=== PATIENT | female | born 1980 | race Caucasian/White ===

== ENCOUNTER 2018-10-26 09:43 | Outpatient (CLI) | payer OTHER, SELFPAY ==
[2018-10-26 10:04] LABS: HCT 38.8 % (36.0-46.0); HGB 12.9 g/dL (12.0-15.5); Mean Corp. HGB Concentration 33.2 g/dL (32.0-36.0); Mean Corpuscular Hemoglobin 29.7 pg (27.0-33.0); Mean Corpuscular Volume 89.2 fL (80-95); Mean Platelet Volume 9.9 fL (8.0-11.0); Platelet Count 192 x1000/uL (130-400); RBC 4.35 m/cumm (4.00-5.20); RBC Distribution Width 13.4 % (11.7-14.6); White Blood Cell Count 5.49 k/cumm (4.4-10.8)
[2018-10-26 11:40] LABS: TSH 1.48 uIU/mL (0.358-3.74)
== END 2018-10-26 10:03 ==
PROVIDERS: PCP Family Medicine; Visit Provider Obstetrics & Gynecology
DX: R53.83 Other fatigue (principal)
CPT/HCPCS: 36415; 85027; 84443

== ENCOUNTER 2018-10-27 01:29 | Outpatient (CLI) | payer OTHER, SELFPAY ==
--- NOTE | 2018-10-27 08:00 | DI.US_ITS ---
SYMPTOM/DIAGNOSIS: R/O GALLSTONES. ABD PAIN R10.9 ABDOMEN ULTRASOUND: Comparison is made with 26 Apr 2014. The liver is normal in size and echogenicity. No focal liver lesions or biliary dilatation is seen. The gallbladder has a normal appearance without evidence of stones or wall thickening. The kidneys, spleen and aorta are unremarkable. No right upper quadrant fluid is seen. IMPRESSION: Negative abdomen ultrasound.
[2018-10-29 10:54] LABS: Helicobacter pylori Ag, Feces Negative (NEGAT)
== END 2018-10-27 01:49 ==
PROVIDERS: PCP Family Medicine; Visit Provider Obstetrics & Gynecology
DX: R10.9 Unspecified abdominal pain (principal)
CPT/HCPCS: 87338; 76700

== ENCOUNTER 2019-08-10 18:50 | Outpatient (REF) | payer OTHER, SELFPAY ==
[2019-08-12 19:41] LABS: HSV 1 PCR, Varies Positive (Negative); HSV 2 PCR, Varies Negative (Negative)
== END 2019-08-10 19:10 ==
LOC: LBN 18:50
PROVIDERS: PCP Family Medicine; Visit Provider Nurse Practitioner
DX: B00.1 Herpesviral vesicular dermatitis (principal); R21 Rash and other nonspecific skin eruption
CPT/HCPCS: 87529

== ENCOUNTER 2020-06-08 01:28 | Outpatient (CLI) | payer OTHER, SELFPAY ==
[2020-06-08 13:24] LABS: TSH (W/Ref FT4) 1.69 uIU/mL (0.36-3.74)
== END 2020-06-08 01:48 ==
PROVIDERS: PCP Family Medicine; Visit Provider Family Medicine
DX: E03.9 Hypothyroidism, unspecified (principal)
CPT/HCPCS: 36415; 84443

== ENCOUNTER 2020-08-11 08:30 | Outpatient (CLI) | payer OTHER, SELFPAY ==
[2020-08-12 20:29] LABS: COVID-19 RT-PCR Result NEGATIVE (Negative)
== END 2020-08-11 08:50 ==
PROVIDERS: PCP Family Medicine; Visit Provider Nurse Practitioner Family
DX: Z11.59 Encounter for screening for other viral diseases (principal)
CPT/HCPCS: U0003

== ENCOUNTER 2020-09-22 20:08 | Emergency (ER) | payer OTHER, SELFPAY ==
[2020-09-22] VITALS (13 sets, daily range): BP systolic 100–138; BP diastolic 74–82; PULSE 77–108; RESP 14–30; TEMP 37; O2SAT 96–100
--- NOTE | 2020-09-22 20:00 | RT.EKG_ITS ---
APPROVED REPORT Exam: Resting ECG Patient Location: E HR:96 bpm ECG Measurements Heart Rate 96 AXIS NV 145 P 64 QRSd 99 QRS 56 QT 358 T 42 QTc 448 Conclusion Sinus rhythm, intervals normal, PVC noted, less than a millimeter of elevation in V1 and aVR, no evid ence of STEMI, no significant reciprocal elevations or depressions.
--- NOTE | 2020-09-22 20:10 | W.ED.GENAD ---
Discharge Plan Disposition Patient Disposition: HOME Condition: Good Discharge Details Clinical Impression: Heart palpitations, Frequent PVCs, Abdominal discomfort, Hair loss Primary Care Provider: Chichi Eduardo ED Provider: Azalea Waite Home Meds and New Rx's Prescriptions: Continued ferrous sulfate 324 MG tablet,delayed release (DR/EC) 324 mg PO BID RF: 0 Centrum Complete 1 EACH tablet 1 tab-cap PO DAILY RF: 0 valacyclovir 1 gram tablet 2,000 mg PO ONCE PRN (Reason: cold sores) Qty: 20 RF: 1 omeprazole 20 mg capsule,delayed release(DR/EC) 20 mg PO DAILY Qty: 30 RF: 2 Discharge Instructions Instructions: Heart Palpitations (ED) Additional Instructions: Your labs and imaging are reassuring here today. On the cardiac cath lab technologist, you did have frequent PVCs. I would like for you to have a cardiac cath lab technologist. Please recheck to respiratory therapy tomorrow to schedule this being applied. Please keep your upcoming appointment with REHABILITATION ASSISTANT and discuss potential hormonal changes that may be the driving source of these issues. Continue to encourage water intake. Try to cut back on caffeine. Your lead and tick/Lyme testing are pending. We will contact you with any positive results. If you develop chest pain, shortness of breath, fevers or other new/worsening symptoms please seek care urgently once again. Otherwise, please follow-up with your primary care in the next 1 to 2 weeks for reevaluation. Referrals: Chichi Eduardo MD [Primary Care Provider] - Gerda Sanchez NP [NURSE PRACTITIONER] - Discharge Data Discharge Date/Time-TO BE ENTERED AT DEPARTURE: 09/22/20 21:40 Medical Decision Making Patient is pleasant 40-year-old female significant past medical history, presenting today with chief complaint of palpitations. Is also endorsing hair warm skin, abdominal discomfort. No change in her weight. No change in appetite. She has had a large amount of stress this is now seems to be out of normal. Symptoms of aggressively worsening over the past year. No chest pain. No shortness of breath. No recent travel. Cough. No change in her skin. Patient does have dogs used to live in [facility] but no known Lyme history or erythema migrans. Patient also has change in her menses. Mother went through menopause at 43. On exam, patient is symptomatically. While on the monitor, she did have frequent PVCs sometimes in bigeminy. On EKG, only 1 PVC was noted. She was noted to have a biphasic P wave. No previous for comparison. Patient is in a normal sinus rhythm. Lungs are clear. Normal thyroid exam. She does have a irregular heart rhythm consistent with PVCs but no murmurs, rubs or gallops. She does have some discomfort with palpation of the left sided epigastric region. No CVA tenderness. Calves are soft nontender. Concern for multitude of issues. Primarily concern for metabolic versus hormonal source of her symptoms. Also considered infectious such as Lyme disease. She does not have a block consistent with Lyme carditis. She does have an upcoming appointment with REHABILITATION ASSISTANT on Friday at which time she could discuss potential hormonal changes being the source. However, with the frequent PVCs I do feel that more prompt evaluation today would be appropriate. As patient does have a left-sided upper abdominal pain that can radiate to the back I do feel that imaging would be appropriate particular as this is worsened over the past year. FINDINGS: Liver: No mass. Gallbladder and bile ducts: No calcified stones. No ductal dilation. Pancreas: No ductal dilation. No masses. Spleen: No splenomegaly or focal lesions. Adrenals: No mass. Kidneys and ureters: Nonobstructive subcentimeter left nephrolithiasis. No renal masses or hydronephrosis bilaterally. Stomach and bowel: No obstruction. No mucosal thickening. Appendix: No evidence of appendicitis. Intraperitoneal space: Trace fluid in the pelvic cul-de-sac appearing physiologic for the patient's age. Vasculature: No abdominal aortic aneurysm. Lymph nodes: No significantly enlarged lymph nodes. Urinary bladder: Unremarkable as visualized. Reproductive: Unremarkable as visualized. Bones/joints: No acute fracture. Soft tissues: No suspicious lesions. IMPRESSION: 1. No acute findings. 2. Nonobstructive subcentimeter left nephrolithiasis. FINDINGS: Lungs: No consolidation. Pleural space: No pleural effusion. No pneumothorax. Heart/Mediastinum: No cardiomegaly. Bones/joints: No acute fracture. IMPRESSION: No acute cardiopulmonary pathology. This is time to the patient. We did discuss the left nephrolithiasis. This is not seem to be consistent with her presentation today. Labs reviewed. CBC, CMP, lipase, TSH, troponin all without significant abnormality. Tick and Lyme as well as lead is pending. Heart rate has been downtrending with IV fluids. Continues to have PVCs and does endorse symptoms with this. Plan for cardiac monitoring. Given the time of day, unable to apply this tonight but of asked her to follow-up with respiratory therapy. Of also asked to follow-up with her primary care. She will keep her upcoming appoint with REHABILITATION ASSISTANT to discuss potential hormonal source of her symptoms. Return precautions were given. All of her questions and concerns were addressed and she is agreement this plan. HPI General Mode of arrival: ambulatory. Date/Time Provider Initiated Documentation: 09/22/20 20:10. Limitations to Documentation: no limitations. Information obtained by: patient and family (sister). HPI Narrative: Patient is a pleasant 40-year-old female presenting today with several vague complaints. Primary concern today is increased frequency of palpitations. She reports that typically her heart rate is in the 50s or 60s but she is been more tachycardic recently and has noted herself to have an irregular heart rate on radial palpation. Patient is a nurse. 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 She denies any shortness of breath. No fevers or chills. No known sick contacts. She also reports that associated with this is a burning over left upper abdomen. She reports that this can occasionally radiate to the back. She denies any chest pain. No alcohol use. This pain is not change with p.o. intake. No change in bowel or bladder habits. She does report that her menses has become more irregular over the past year. Also has been noting significant hair loss. No change in her weight. No change in appetite. She has discussed this with her primary care. Thyroid testing has been normal historically. She does report that she is also had intermittent swelling to the anterior aspect of her neck that was able to be visualized and confirmed with family members as well. This is not an issue currently. Mother went through menopause at 43. Related Data Home Medications Medication Instructions Recorded Confirmed Centrum Complete 1 tab-cap PO DAILY tab-cap 05/21/18 09/22/20 ferrous sulfate 324 mg PO BID 05/21/18 09/22/20 valacyclovir 1 gram tablet 2,000 mg PO ONCE PRN #20 tab 10/07/19 09/22/20 omeprazole 20 mg capsule,delayed 20 mg PO DAILY #30 cap 01/20/20 09/22/20 release Previous Rx's Medication Instructions Recorded valacyclovir 1 gram tablet 2,000 mg PO ONCE PRN #20 tab 10/07/19 omeprazole 20 mg capsule,delayed 20 mg PO DAILY #30 cap 01/20/20 release Allergies Allergy/AdvReac Type Severity Reaction Status Date / Time No Known Allergies Allergy Unverified 09/22/20 20:33 Review of Systems Constitutional Constitutional: Reports as per HPI, Denies chills, Reports fatigue, Denies fever(s), Denies headache(s), Denies lethargy and Denies poor appetite Eyes Eyes: Denies change in vision ENT Ears, Nose, Mouth, and Throat: Denies dizziness and Denies headache(s) Cardiovascular Cardiovascular: Reports as per HPI, Denies dyspnea and Denies dyspnea on exertion Respiratory Respiratory: Reports as per HPI, Denies chest congestion, Denies cough, Denies pain on inspiration, Denies pain with cough, Denies dyspnea, Denies dyspnea on exertion and Denies wheezing Gastrointestinal Gastrointestinal: Reports as per HPI, Reports abdominal pain, Denies diarrhea, Denies nausea and Denies vomiting Musculoskeletal Musculoskeletal: Reports as per HPI and Denies back pain Integumentary/Breasts Skin/Breast: Reports as per HPI and Denies rash Neurologic Neurologic: Reports as per HPI, Denies dizziness and Denies headache(s) Endocrine Endocrine: Reports fatigue Allergic/Immunologic Allergic/Immunologic: Denies wheezing [facility] Medical History Abnormal Pap smear of cervix prior to of first child. Surgical History section (03/17/13) LTCS 2 layer closure. IOL at 42w with Misoprostil arrest of dilation at 7cm for 3hrs. F. 9lbs 1oz. Family History Mother Essential hypertension Father Diabetes Essential hypertension Heart disease CHF (congestive heart failure) Sister No problems noted. Grandfather Personal history of malignant neoplasm LUNG Depression Grandfather Colon cancer Grandmother Diabetes Essential hypertension Heart disease Grandmother No problems noted. Maternal Aunt CHF (congestive heart failure) Breast cancer paternal aunt, maternal aunt Sister No problems noted. Son No problems noted. Son No problems noted. Daughter No problems noted. Social History Smoking/Tobacco Use Status: Former Tobacco Use Alcohol Intake: current Alcohol Intake frequency: holidays/special occasions only Substance use type: does not use Number of Children: 3 current occupation: RN Pets and animals: Yes Seatbelt use: always Do you feel safe at home: Yes Do you feel safe in your relationship?: Yes Exam Const General: cooperative, healthy appearing, comfortable, no acute distress and well developed Nutritional Appearance: average body habitus and well nourished Orientation: alert, awake and oriented x3 HENMT Head: normal to inspection Ears: hearing grossly normal bilaterally Mouth: moist mucous membranes Neck Neck: normal visual inspection, full ROM, no lymphadenopathy, no meningeal signs, trachea midline, no anterior neck swelling and no lymphadenopathy noted Thyroid: thyroid normal Chest Chest: normal inspection of the chest, normal palpation of entire chest wall and no crepitus Resp Effort & Inspection: normal respiratory effort, able to speak in complete sentences and no respiratory distress Auscultation: clear to auscultation bilaterally, no rales, no rhonchi and no wheezes Cardio Rate: regular rate Rhythm: abnormal rhythm irregularly irregular and with ectopic beats Heart Sounds: S1 normal and S2 normal GI Inspection: normal to inspection, no edema and non-distended Palpation: soft, no hepatosplenomegaly, not firm, no guarding, not rigid and tender (LUQ, close to epigastric region) Chew's sign negative and with no rebound tenderness Auscultation: normal bowel sounds Back/Spine/Pelvis Back: no CVA tenderness Thoracic/Lumbar Spine: thoracic and lumbar spine normal to inspection Skin General skin exam: no rashes or lesions noted Trauma: no lacerations or abrasions Neuro General: patient alert, patient awake and patient oriented x3 Cognition: normal cognition Speech: speech normal Gait: normal gait Extrem General: normal to inspection, capillary refill normal, no pedal edema, no calf tenderness and normal gait Psych Appearance: grossly normal and well kempt Mental Status: mental status grossly normal Speech and Movement: speech and movement normal
[2020-09-22 20:40] LABS: Abs Immature Grans 0.02 10^3/uL (0.0-0.06); Absolute Basophil Count 0.02 10^3/uL (0.0-0.2); Absolute Eosinophil Count 0.15 10^3/uL (0.0-0.7); Absolute Lymphocyte Count 2.36 10^3/uL (1.2-3.4); Absolute Monocyte Count 0.57 10^3/uL (0.1-0.8); Absolute Neutrophil Count 4.56 10^3/uL (1.2-6.7); Basophils % 0.3; HCT 40.4 % (36.0-46.0); HGB 13.2 g/dL (11.2-15.7); Immature Grans % 0.3; Lymphocytes % 30.7; MCH 29.3 pg (27.0-33.0); MCHC 32.7 % (32.0-36.0); MCV 89.8 fL (80-95); MPV 10.6 fL (8.0-11.0); Monocytes % 7.4; Neutrophils % 59.3; Nucleated RBC 0 %; Platelet Count 213 10^3/uL (130-400); RDW-SD 42.7 fL; WBC 7.68 10^3/uL (4.4-10.8)
[2020-09-22] MEDS: Normal Saline - Diluent 50 ML VIAL IV (20:43)
[2020-09-22] MEDS: Omnipaque 350 MG/ML 100 ML BTL IJ (20:43)
[2020-09-22] MEDS: Normal Saline Flush 10 ML SYR IVP (20:44)
--- NOTE | 2020-09-22 20:44 | DI.CT_ITS ---
EXAM: CT ABDOMEN PELVIS W INDICATION: central abdominal pain. COMPARISON: No exams were available for comparison TECHNIQUE: FINDINGS: CT examination of the abdomen and pelvis was performed with a bolus infusion of 100 cc of Omnipaque 3 50. Images obtained through the lung bases are unremarkable. The liver is unremarkable appearance. Gallbladder and bile ducts are CT normal. Pancreas appears normal. Spleen is unremarkable in appearance. Adrenals and kidneys are unremarkable except for a tiny nonobstructing left renal calculus. Urinary bladder unremarkable. Abdominal aorta is of normal diameter and no major vascular abnormality is seen. No abdominal wall hernia. No abdominal or pelvic adenopathy. BAG REPAIRER structures appear intact. Appendix is normal. No evidence of diverticulitis or bowel obstruction. IMPRESSION: Tiny nonobstructing left renal calculus. Examination is otherwise unremarkable. RADIATION DOSE DELIVERED: 928.27mGy.cm Total DLP 928.27mGy.cm Total DLP
--- NOTE | 2020-09-22 20:52 | DI.RAD_ITS ---
EXAM: XR CHEST 2V PA LATERAL CLINICAL HISTORY: palpitations TECHNIQUE: 2D digital imaging was performed. COMPARISON: CR CHEST 2 VIEWS PA,LAT from 01/25/2014 FINDINGS: The heart is not enlarged. The lungs are clear and well expanded. No pleural effusion seen. Mediastin al contours appear intact. IMPRESSION: Normal chest RADIATION DOSE DELIVERED: Total DLP Total DLP
[2020-09-22 20:58] LABS: Lipase 123 U/L (73-393)
--- NOTE | 2020-09-22 20:58 | DI.VRAD_ITS ---
PROCEDURE INFORMATION: Exam: CT Abdomen And Pelvis With Contrast Exam date and time: 09/22/2020 20:44 Age: 40 years old Clinical indication: Abdominal pain; Generalized TECHNIQUE: Imaging protocol: Computed tomography of the abdomen and pelvis with intravenous contrast. Radiation optimization: All CT scans at this facility use at least one of these dose optimization techniques: automated exposure control; mA and/or kV adjustment per patient size (includes targeted exams where dose is matched to clinical indication); or iterative reconstruction. Contrast material: [id number]; Contrast volume: 100 ml; Contrast route: INTRAVENOUS (IV); COMPARISON: US PELVIS TRANSVAG 04/13/2018 15:17 FINDINGS: Liver: No mass. Gallbladder and bile ducts: No calcified stones. No ductal dilation. Pancreas: No ductal dilation. No masses. Spleen: No splenomegaly or focal lesions. Adrenals: No mass. Kidneys and ureters: Nonobstructive subcentimeter left nephrolithiasis. No renal masses or hydronephrosis bilaterally. Stomach and bowel: No obstruction. No mucosal thickening. Appendix: No evidence of appendicitis. Intraperitoneal space: Trace fluid in the pelvic cul-de-sac appearing physiologic for the patient's age. Vasculature: No abdominal aortic aneurysm. Lymph nodes: No significantly enlarged lymph nodes. Urinary bladder: Unremarkable as visualized. Reproductive: Unremarkable as visualized. Bones/joints: No acute fracture. Soft tissues: No suspicious lesions. IMPRESSION: 1. No acute findings. 2. Nonobstructive subcentimeter left nephrolithiasis. Dictated and Authenticated by: Riya Mao MD. Ordering:ANA Tristan MD
[2020-09-22] MEDS: Lactated Ringers 1,000 ML 1000 ML IV (20:59)
--- NOTE | 2020-09-22 21:00 | DI.VRAD_ITS ---
PROCEDURE INFORMATION: Exam: XR Chest, 2 Views Exam date and time: 09/22/2020 20:53 Age: 40 years old Clinical indication: Other: Palpitations TECHNIQUE: Imaging protocol: XR of the chest Views: 2 views. COMPARISON: No relevant prior studies available. FINDINGS: Lungs: No consolidation. Pleural space: No pleural effusion. No pneumothorax. Heart/Mediastinum: No cardiomegaly. Bones/joints: No acute fracture. IMPRESSION: No acute cardiopulmonary pathology. Dictated and Authenticated by: Riya Mao MD. Ordering:ANA Tristan MD
[2020-09-22 21:13] LABS: ALT 24 U/L (14-59); AST 13 U/L (15-37); Albumin 4.2 g/dL (3.4-5.0); Alkaline Phosphatase 66 U/L (46-116); Anion Gap 8.2 mmol/L (3-11); BUN 14 mg/dL (7-18); Bilirubin, Total 0.5 mg/dL (0.2-1.0); CO2 26.8 mmol/L (21.0-32.0); CREATININE 0.95 mg/dL (0.55-1.02); Calcium 9.5 mg/dL (8.5-10.1); Chloride 106 mmol/L (98-107); Glucose 104 mg/dL (74-106); Magnesium 2.1 mg/dL (1.8-2.4); Potassium 3.5 mmol/L (3.5-5.1); Sodium 141 mmol/L (136-145); TSH (W/Ref FT4) 2.25 uIU/mL (0.36-3.74); Total Protein 7.5 g/dL (6.4-8.2); Troponin I < 0.05 ng/mL (<0.06)
[2020-09-25 11:02] LABS: Lyme Ab w Rflx to Lyme Confirm Negative (Negative)
[2020-09-27 18:57] LABS: Anaplasma phagocytophilum Negative (Negative); B. miyamotoi PCR Negative (Negative); Babesia divergens/MO-1 Negative (Negative); Babesia duncani Negative (Negative); Babesia microti Negative (Negative); Ehrlichia chaffeensis Negative (Negative); Ehrlichia ewingii/canis Negative (Negative); Ehrlichia muris eauclairensis Negative (Negative)
== END 2020-09-22 21:40 | disposition home or self-care (01) ==
PROVIDERS: Emergency Provider Physician Assistant; PCP Family Medicine
DX: I49.3 Ventricular premature depolarization (principal); R00.2 Palpitations; R10.13 Epigastric pain; L65.9 Nonscarring hair loss, unspecified
CPT/HCPCS: 36415; 80053; 81025; 83690; 87798; 93005; 96360; 99285; 71046; 74177; 83655; 83735; 84443; 84484; 85025; 86618; 93010; J3490

== ENCOUNTER 2020-09-25 10:22 | Outpatient (CLI) | payer OTHER, SELFPAY | END 2020-09-25 10:42 | PROVIDERS: PCP Family Medicine; Visit Provider Family Medicine | DX: R00.2 Palpitations (principal) | CPT/HCPCS: 93225 ==

== ENCOUNTER 2020-09-25 12:15 | Outpatient (REF) | payer OTHER, SELFPAY ==
--- NOTE | 2020-09-25 09:40 | PAPFT_PTH ---
PATIENT: Vidhya Gallegos LOC: [facility] U#:[id number] AGE/SX: 40/F ROOM: RE09/25/[address]: Gerda Sanchez NP : 1980 BED: DIS: 09/25/2020 SPEC #: [id number] RECD: 09/25/20 13:01 STATUS: DIANNE REJose #: [id number] JESSICA: 09/25/20 09:[address]: Gerda Sanchez NP DEPT: [facility] Cytology RECD BY: Tara Rod ENTERED: 09/25/20 13:02 SP TYPE: PAPFT OTHR DR: Chichi Eduardo MD Tissues: 1 - CX/ENDOCX FOR PAP SMEARS Procedures: PAP THIN PREP/[facility] Screening HPV DNA PROBE Comments: [id number] (CHLAMYDIA/GC)
[2020-09-26 15:01] LABS: Chlamydia Result Negative (Negative); GC Result Negative (Negative)
== END 2020-09-25 12:35 ==
LOC: LBN 12:15
PROVIDERS: PCP Family Medicine; Visit Provider Nurse Practitioner Women's Health
DX: Z11.3 Encounter for screening for infections with a predominantly sexual mode of transmission (principal); Z11.51 Encounter for screening for human papillomavirus (HPV); Z12.4 Encounter for screening for malignant neoplasm of cervix
CPT/HCPCS: 87491; 87591; 88142; 87624

== ENCOUNTER 2020-09-26 02:37 | Outpatient (CLI) | payer OTHER, SELFPAY ==
[2020-09-26 08:43] LABS: Hemoglobin A1C 5.2 % (<5.7)
[2020-09-26 18:03] LABS: Estradiol 79 pg/mL (See Note)
[2020-09-26 20:08] LABS: FSH 3.8 mIU/mL (See Note)
== END 2020-09-26 02:57 ==
PROVIDERS: PCP Family Medicine; Visit Provider Nurse Practitioner Women's Health
DX: L65.9 Nonscarring hair loss, unspecified (principal); N92.6 Irregular menstruation, unspecified; R63.1 Polydipsia
CPT/HCPCS: 36415; 82670; 83001; 83036

== ENCOUNTER 2020-09-27 12:51 | Outpatient (CLI) | payer OTHER, SELFPAY ==
--- NOTE | 2020-09-28 09:16 | W.HOLTRPT ---
Date of service: 09/28/20 Time of Service: 09:17 Holter Monitor Report Referring Provider:: jaimie shaw Indications:: palpitations Holter Monitor Note: This is a 48-hour Holter monitor reportedly ordered for symptoms of palpitations The rhythm throughout was sinus. Average heart rate was 73. Minimum heart rate was 50 and maximum 135 There were very rare atrial and ventricular ectopic beats There was no atrial fibrillation, no high-grade AV block, no pauses greater than 3 seconds patient symptoms correlated to sinus rhythm rate 97
== END 2020-09-27 13:11 ==
PROVIDERS: PCP Family Medicine; Visit Provider Family Medicine
DX: R00.2 Palpitations (principal); I49.1 Atrial premature depolarization; I49.3 Ventricular premature depolarization
CPT/HCPCS: 93226

== ENCOUNTER 2020-10-27 01:59 | Outpatient (CLI) | payer OTHER, SELFPAY ==
--- NOTE | 2020-10-27 13:00 | DI.MAMMO_ITS ---
EXAM: MAMMO SCREENING CLINICAL HISTORY: screening TECHNIQUE: Mammograms were interpreted according to the usual protocol including computer analysis w [employer] CAD system, tomosynthesis and C-view imaging. COMPARISON: FINDINGS: The breasts are of moderate density with fairly symmetrical distribution of fibroglandular tissue. N o dominant mass or clumped microcalcification is identified in either breast. Today's examination is a baseline examination. IMPRESSION: No specific evidence of malignancy at this time. Routine screening examinations are suggested at yea rly intervals in this age group according to the ACR guidelines. Category BI-RADS Cat 1 - Negative Breast Density - Category B - Scattered areas of fibroglandular density
== END 2020-10-27 02:19 ==
PROVIDERS: PCP Family Medicine; Visit Provider Nurse Practitioner Women's Health
DX: Z12.31 Encounter for screening mammogram for malignant neoplasm of breast (principal)
CPT/HCPCS: 77063; 77067

== ENCOUNTER 2021-10-18 09:12 | Outpatient (REF) | payer OTHER, SELFPAY ==
[2021-10-18 10:17] LABS: Source Nasal/Nares
[2021-10-18 20:05] LABS: COVID-19 PCR Negative (Negative)
== END 2021-10-18 09:13 | disposition home or self-care (01) ==
LOC: LBN 09:12
PROVIDERS: PCP Family Medicine; Visit Provider Obstetrics & Gynecology
DX: Z20.822 Contact with and (suspected) exposure to COVID-19 (principal)
CPT/HCPCS: 87635

== ENCOUNTER 2022-02-12 18:03 | Outpatient (REF) | payer OTHER, SELFPAY ==
[2022-02-12 20:59] LABS: COVID-19 RT-PCR UVMMC Result Negative (Negative)
== END 2022-02-12 18:04 | disposition home or self-care (01) ==
LOC: LBN 18:03
PROVIDERS: PCP Family Medicine; Visit Provider Obstetrics & Gynecology
DX: Z20.822 Contact with and (suspected) exposure to COVID-19 (principal)
CPT/HCPCS: U0003

== ENCOUNTER 2022-03-26 19:03 | Outpatient (REF) | payer OTHER, SELFPAY ==
[2022-03-28 11:44] LABS: COVID-19 RT-PCR UVMMC Result Negative (Negative)
== END 2022-03-26 19:04 | disposition home or self-care (01) ==
LOC: LBN 19:03
PROVIDERS: PCP Family Medicine; Visit Provider Obstetrics & Gynecology
DX: Z20.822 Contact with and (suspected) exposure to COVID-19 (principal)
CPT/HCPCS: U0003

== ENCOUNTER 2022-04-24 09:11 | Outpatient (CLI) | payer OTHER, SELFPAY | END 2022-04-24 09:12 | disposition home or self-care (01) | LOC: LBO 09:27 | PROVIDERS: Referring Provider Obstetrics & Gynecology; Visit Provider Obstetrics & Gynecology ==

== ENCOUNTER 2022-04-24 09:17 | Outpatient (REF) | payer OTHER, SELFPAY ==
[2022-04-25 02:01] LABS: COVID-19 RT-PCR UVMMC Result Negative (Negative)
== END 2022-04-24 09:18 | disposition home or self-care (01) ==
LOC: LBN 09:17
PROVIDERS: Visit Provider Obstetrics & Gynecology
DX: Z20.822 Contact with and (suspected) exposure to COVID-19 (principal)
CPT/HCPCS: U0003

== ENCOUNTER → 2022-07-08 02:37 | Outpatient (CLI) | payer OTHER, SELFPAY ==
--- NOTE | 2022-07-08 07:45 | DI.MAMMO_ITS ---
Exam(s) MAMMO SCREENING EXAM: MAMMO SCREENING CLINICAL HISTORY: screening,Z12.39. TECHNIQUE: Bilateral full field digital CC and MLO mammographic images were obtained with 3D tomosyn thesis and utilizing computer aided detection (CAD). COMPARISON: Prior mammograms were reviewed, the most recent being October 2020. FINDINGS: In the medial aspect of the right breast there is an asymmetric density measuring 3 x 3 cm located 7 cm in from the nipple, seen on the CC view. In the left breast on MLO 3D imaging there is a asymmetric density located 5 cm in from the nipple me asuring approximately 6 x 5 millimeters. No malignant-appearing microcalcification groups in either breast. There is no significant architectural distortion nor skin thickening-retraction. IMPRESSION: Bilateral asymmetric densities as described above. Spot compression views and bilateral breast ultra sound recommended BI-RADS Category 0 - Assessment Incomplete: Need additional imaging evaluation Breast Density - Category B - Scattered areas of fibroglandular density Breast density Category C or D implies that the patient has dense breast tissue. Dense breast tissue can make it harder to find cancer on a mammogram. Dense breast tissue is also associated with an incr eased risk of breast cancer. This information about the result of the mammogram report was provided to the patient to raise their awareness. Use this report when you speak with the patient about their risks for breast cancer, which includes their family history. At that time, you may recommend additional screening tests (Ultrasoun d or MRI) as these tests may add significant information. A negative radiographic report should not delay biopsy if a dominant or clinically suspicious mass is present. Up to ten percent of cancers are not identified on mammography. A negative report may reinforce clinical impression. Adenosis and dense breasts may obscure an underlying neoplasm. False positive reports average 6 to 10%. Patient will receive a letter notifying them of these results.
== END ==
PROVIDERS: Visit Provider Nurse Practitioner Women's Health
DX: Z12.31 Encounter for screening mammogram for malignant neoplasm of breast (principal); R92.8 Other abnormal and inconclusive findings on diagnostic imaging of breast
CPT/HCPCS: 77063; 77067

== ENCOUNTER 2022-07-09 16:29 | Outpatient (REF) | payer OTHER, SELFPAY ==
[2022-07-10 13:41] LABS: Chlamydia Result Negative (Negative); GC Result Negative (Negative)
== END 2022-07-09 16:30 | disposition home or self-care (01) ==
LOC: LBN 16:29
PROVIDERS: Visit Provider Nurse Practitioner Women's Health
DX: Z11.3 Encounter for screening for infections with a predominantly sexual mode of transmission (principal)
CPT/HCPCS: 87491; 87591

== ENCOUNTER → 2022-07-11 00:33 | Outpatient (CLI) | payer OTHER, SELFPAY ==
--- NOTE | 2022-07-11 | DI.US_ITS ---
Exam(s) US BREAST LT COMPLETE US BREAST RT COMPLETE MG MAMMO SCREEN CALL BACK BI EXAM: MG MAMMO SCREEN CALL BACK BI AND BILATERAL COMPLETE BREAST ULTRASOUND CLINICAL HISTORY: F/U MAMMO, BILAT ASYMMETRIC DENSITY, R92.8. TECHNIQUE: BILATERAL spot mammographic images obtained with 3D tomosynthesisand utilizing computer a ided detection (CAD). SPOT MLO VIEW WAS PERFORMED ON THE LEFT BREAST AND SPOT CC VIEW ON THE RIGHT BR EAST, BOTH PERFORMED WITH 3D SPOT TECHNIQUE.. Complete BILATERAL breast Ultrasound was also performed, including all 4 quadrants, the retroareolar region, and the ipsilateral axilla. COMPARISON: Prior mammograms were reviewed. This additional imaging was performed due to findings described on the recent screening mammogram of July 08, 2022. FINDINGS: DIAGNOSTIC BILATERAL MAMMOGRAM: Additional mammographic views performed todayrender the areas in both breasts less concerning. BILATERAL COMPLETE BREAST ULTRASOUND: Ultrasound performed today reveals no evidence of solid or significant cystic lesions in either breas t.. Retroareolar regions of both unremarkable. Scanning of the axillary regions is negative for vikram nopathy on both sides. IMPRESSION: No radiographic evidence of malignancy. Negative bilateral complete breast ultrasound Appropriate follow-up, as discussed by myself with the patient today, is repeat bilateral mammogram in 6 months. The patient was informed of these findings and recommendations prior to leaving the department today. BI-RADS Category 3 - 6 month - Probably Benign Finding: Recommend follow-up mammography in 6 months Breast Density - Category B - Scattered areas of fibroglandular density Breast density Category C or D implies that the patient has dense breast tissue. Dense breast tissue can make it harder to find cancer on a mammogram. Dense breast tissue is also associated with an incr eased risk of breast cancer. This information about the result of the mammogram report was provided to the patient to raise their awareness. Use this report when you speak with the patient about their risks for breast cancer, which includes their family history. At that time, you may recommend additional screening tests (Ultrasoun d or MRI) as these tests may add significant information. A negative radiographic report should not delay biopsy if a dominant or clinically suspicious mass is present. Up to ten percent of cancers are not identified on mammography. A negative report may reinforce clinical impression. Adenosis and dense breasts may obscure an underlying neoplasm. False positive reports average 6 to 10%. Patient will receive a letter notifying them of these results.
== END ==
PROVIDERS: Visit Provider Nurse Practitioner Women's Health
DX: R92.8 Other abnormal and inconclusive findings on diagnostic imaging of breast (principal)
CPT/HCPCS: 76642; 77063; 77067

== ENCOUNTER 2023-01-14 00:12 | Outpatient (CLI) | payer OTHER, SELFPAY ==
--- NOTE | 2023-01-14 07:45 | DI.MAMMO_ITS ---
Exam(s) MAMMO DIAGNOSTIC BI EXAM: MAMMO DIAGNOSTIC BI CLINICAL HISTORY: 6 month f/u,r92.8h/o asymmetric density. TECHNIQUE: Unilateral spot mammographic images were obtained with 3D tomosynthesis technique and uti lizing computer aided detection (CAD). COMPARISON: Prior mammograms were reviewed, the most recent being July 2022.. Ultrasound July 2022 was also reviewed (which was negative bilateral study). FINDINGS: There are no new masses nor malignant-appearing microcalcification groups in either breast. Previously described bilateral findings are actually less evident on the present study, further evide nce that they were benign. There is no new architectural distortion or skin thickening-traction IMPRESSION: No radiographic evidence of malignancy Appropriate follow-up is to keep this patient on her yearly mammogram schedule, this implying the [facility] t bilateral mammogram would be in 6 months, with earlier imaging if a self detected breast change is noted.. The patient was informed of the findings and follow-up recommendations prior to leaving the [facility] today. BI-RADS Category 2 - Benign Findings Breast Density - Category B - Scattered areas of fibroglandular density Breast density Category C or D implies that the patient has dense breast tissue. Dense breast tissue can make it harder to find cancer on a mammogram. Dense breast tissue is also associated with an incr eased risk of breast cancer. This information about the result of the mammogram report was provided to the patient to raise their awareness. Use this report when you speak with the patient about their risks for breast cancer, which includes their family history. At that time, you may recommend additional screening tests (Ultrasoun d or MRI) as these tests may add significant information. A negative radiographic report should not delay biopsy if a dominant or clinically suspicious mass is present. Up to ten percent of cancers are not identified on mammography. A negative report may reinforce clinical impression. Adenosis and dense breasts may obscure an underlying neoplasm. False positive reports average 6 to 10%. Patient will receive a letter notifying them of these results.
== END 2023-01-14 00:32 ==
LOC: DI 00:12
PROVIDERS: PCP Nurse Practitioner Family; Visit Provider Nurse Practitioner Women's Health
DX: R92.8 Other abnormal and inconclusive findings on diagnostic imaging of breast (principal)
CPT/HCPCS: 77062; 77066; G0279

== ENCOUNTER 2023-03-18 08:39 | Outpatient (REF) | payer OTHER, SELFPAY ==
[2023-03-18 09:35] LABS: COVID-19 PCR Negative (Negative); Influenza A PCR Negative (Negative); Influenza B PCR Negative (Negative); RSV PCR Negative (Negative)
[2023-03-18 09:38] LABS: Source Nasopharynx
== END 2023-03-18 08:40 | disposition home or self-care (01) ==
LOC: LBN 08:39
PROVIDERS: PCP Nurse Practitioner Family; Visit Provider Obstetrics & Gynecology
DX: Z20.822 Contact with and (suspected) exposure to COVID-19 (principal); J06.9 Acute upper respiratory infection, unspecified
CPT/HCPCS: 87637

== ENCOUNTER 2023-09-15 14:24 | Outpatient (REF) | payer OTHER, SELFPAY ==
[2023-09-15 15:24] LABS: COVID-19 PCR Negative (Negative); Influenza A PCR Negative (Negative); Influenza B PCR Negative (Negative); RSV PCR Negative (Negative)
[2023-09-15 15:25] LABS: Source Nasopharynx
== END 2023-09-15 14:25 | disposition home or self-care (01) ==
LOC: LBN 14:24
PROVIDERS: PCP Nurse Practitioner Family; Visit Provider Obstetrics & Gynecology
DX: Z11.59 Encounter for screening for other viral diseases (principal); Z20.822 Contact with and (suspected) exposure to COVID-19
CPT/HCPCS: 87637

== ENCOUNTER 2023-10-01 14:14 | Outpatient (REF) | payer OTHER, SELFPAY ==
--- NOTE | 2023-10-01 12:30 | PAPFT_PTH ---
PATIENT: Vidhya Gallegos LOC: [facility] U#:[id number] AGE/SX: 43/F ROOM: RE10/01/[address]: Neha Canales CNM : 1980 BED: DIS: 10/01/2023 SPEC #: [id number] RECD: 10/01/23 17:50 STATUS: DIANNE REQ #: [id number] JESSICA: 10/01/23 12:[address]: Neha Canales DEPT: [facility] Cytology RECD BY: Tara Rod ENTERED: 10/01/23 17:50 SP TYPE: PAPFT OTHR DR: Jon Peterson DNP Tissues: 1 - CX/ENDOCX FOR PAP SMEARS Procedures: PAP THIN PREP/UVM Screening Comments: [id number] (CHLAMYDIA/GC)
[2023-10-02 14:51] LABS: Chlamydia Result Negative (Negative); GC Result Negative (Negative)
== END 2023-10-01 14:15 | disposition home or self-care (01) ==
LOC: LBN 14:14
PROVIDERS: PCP Nurse Practitioner Family; Visit Provider Advanced Practice Midwife
DX: Z12.4 Encounter for screening for malignant neoplasm of cervix (principal); Z11.3 Encounter for screening for infections with a predominantly sexual mode of transmission
CPT/HCPCS: 87491; 87591; 88142

== ENCOUNTER → 2023-10-30 00:49 | Outpatient (CLI) | payer OTHER, SELFPAY ==
--- NOTE | 2023-10-30 13:12 | DI.MAMMO_ITS ---
Exam(s) MAMMO SCREENING EXAM: MAMMO SCREENING CLINICAL HISTORY: screening. TECHNIQUE: Bilateral full field digital CC and MLO mammographic images were obtained with 3D tomosyn thesis and utilizing computer aided detection (CAD). COMPARISON: Prior mammograms were reviewed. Prior ultrasound July 2022 also reviewed which was a negative bilateral study. FINDINGS: There are no new spiculated masses nor malignant-appearing microcalcification groups. Benign microcalcifications again noted in both breasts. There is no significant architectural distortion nor skin thickening-retraction. IMPRESSION: No radiographic evidence of malignancy. BI-RADS Category 1 - Negative Breast Density - Category B - Scattered areas of fibroglandular density Breast density Category C or D implies that the patient has dense breast tissue. Dense breast tissue can make it harder to find cancer on a mammogram. Dense breast tissue is also associated with an incr eased risk of breast cancer. This information about the result of the mammogram report was provided to the patient to raise their awareness. Use this report when you speak with the patient about their risks for breast cancer, which includes their family history. At that time, you may recommend additional screening tests (Ultrasoun d or MRI) as these tests may add significant information. A negative radiographic report should not delay biopsy if a dominant or clinically suspicious mass is present. Up to ten percent of cancers are not identified on mammography. A negative report may reinforce clinical impression. Adenosis and dense breasts may obscure an underlying neoplasm. False positive reports average 6 to 10%. Patient will receive a letter notifying them of these results.
== END ==
PROVIDERS: PCP Nurse Practitioner Family; Visit Provider Advanced Practice Midwife
DX: Z12.31 Encounter for screening mammogram for malignant neoplasm of breast (principal)
CPT/HCPCS: 77063; 77067

== ENCOUNTER 2023-12-11 03:32 | Outpatient (CLI) | payer OTHER, SELFPAY ==
[2023-12-11 11:27] LABS: Anion Gap 7.9 mmol/L (3-11); BUN 19 mg/dL (7-18); CO2 27.1 mmol/L (21.0-32.0); Calcium 9.5 mg/dL (8.5-10.1); Calculated LDL 170 mg/dL (<100); Chloride 103 mmol/L (98-107); Cholesterol 229 mg/dL (<200); Estimated GFR 71.69 (mL/min/1.73m2); Glucose 99 mg/dL (74-106); HDL Cholesterol 45 mg/dL (40-60); Potassium 3.9 mmol/L (3.5-5.1); Sodium 138 mmol/L (136-145); Triglyceride 71 mg/dL (<150)
[2023-12-11 20:08] LABS: Hepatitis B Surface Ag Negative (Negative)
[2023-12-11 20:40] LABS: Hepatitis C Ab w Rflx HCV PCR Negative (Negative)
[2023-12-11 20:44] LABS: HIV-1/2 Ag & Ab Screen Negative (Negative)
[2023-12-12 10:24] LABS: Syphilis Serology (RPR) Negative (Negative)
== END 2023-12-11 03:33 | disposition home or self-care (01) ==
LOC: LBO 03:33
PROVIDERS: Advanced Practice Midwife; PCP Nurse Practitioner Family; Visit Provider Nurse Practitioner Family
DX: Z13.220 Encounter for screening for lipoid disorders (principal); Z34.91 Encounter for supervision of normal pregnancy, unspecified, first trimester; Z72.51 High risk heterosexual behavior
CPT/HCPCS: 36415; 80048; 80061; 86803; 87340; 87389; 86592

== ENCOUNTER 2024-09-16 02:57 | Outpatient (CLI) | payer OTHER, SELFPAY ==
[2024-09-16 08:20] LABS: HCT 39.8 % (36.0-46.0); HGB 12.9 g/dL (11.2-15.7); MCH 28.6 pg (27.0-33.0); MCHC 32.4 % (32.0-36.0); MCV 88 fL (80-95); Platelet Count 216 10^3/uL (130-400); RBC 4.51 10^6/uL (3.93-5.22); RDW 13.7 % (11.7-14.6); RDW-SD 44.2 fL; WBC 5.34 10^3/uL (4.4-10.8)
[2024-09-16 09:05] LABS: ALT 23 U/L (14-59); AST 13 U/L (15-37); Albumin 3.9 g/dL (3.4-5.0); Alkaline Phosphatase 72 U/L (46-116); Anion Gap 7.7 mmol/L (3-11); BUN 11 mg/dL (7-18); Bilirubin, Total 0.78 mg/dL (0.2-1.0); CO2 28.3 mmol/L (21.0-32.0); Calcium 9.2 mg/dL (8.5-10.1); Chloride 107 mmol/L (98-107); Estimated GFR 71.24 (mL/min/1.73m2); Ferritin 28 ng/mL (8-252); Glucose 98 mg/dL (74-106); Sodium 143 mmol/L (136-145); TSH (W/Ref FT4) 2.85 uIU/mL (0.36-3.74); Total Protein 7.5 g/dL (6.4-8.2)
[2024-09-16 09:18] LABS: Iron 96 ug/dL (50-170); Total Iron Binding Capacity 389 ug/dL (250-450); Transferrin Sat 25 % (15-50)
== END 2024-09-16 02:58 | disposition home or self-care (01) ==
LOC: LBO 02:57
PROVIDERS: PCP Nurse Practitioner Family; Visit Provider Nurse Practitioner Women's Health
DX: R53.83 Other fatigue (principal)
CPT/HCPCS: 36415; 80053; 85027; 82728; 83540; 83550; 84443

== ENCOUNTER 2024-10-10 06:58 | Emergency (ER) | payer OTHER, SELFPAY ==
[2024-10-10 06:59] VITALS: BP 127/70; PULSE 99; RESP 17; TEMP 37.2; O2SAT 99
--- NOTE | 2024-10-10 07:00 | DI.RAD_ITS ---
Exam(s) XR CHEST 2V PA LATERAL EXAM: XR CHEST 2V PA LATERAL CLINICAL HISTORY: Cough TECHNIQUE: 2D digital imaging was performed of the chest. Two images were obtained. PA and lateral views were obtained. COMPARISON: CR,XR XR CHEST 2V PA LATERAL from 09/22/2020 FINDINGS: MEDIASTINUM: Normal. HEART: Normal. PULMONARY VASCULATURE: Normal. LUNGS: There is an infiltrate seen in the left lower lobe. The right lung is clear. PLEURAL SPACE: No pleural effusion or pneumothorax. BONE:Within normal limits for the patient's age. OTHER FINDINGS:Normal. IMPRESSION: Left lower lobe pneumonia. DATA REPOSITORY: RADIATION DOSE DELIVERED:
[2024-10-10 07:03] VITALS: BP 127/70; PULSE 99; RESP 17; TEMP 37.2; O2SAT 99
--- NOTE | 2024-10-10 07:07 | W.ED.GENAD ---
Discharge Plan Disposition Patient Disposition: Home Discharge Details Clinical Impression: Left lower lobe pneumonia Primary Care Provider: Jon Bateman ED Provider: Ephraim Chilel Home Meds and New Rx's Prescriptions: New promethazine-DM 6.25-15 mg/5 mL syrup 5 ml PO Q6H PRNQty: 118 0RF amoxicillin 500 mg capsule 1,000 mg PO TID 7 Days Qty: 42 0RF Continued ondansetron 4 mg tablet,disintegrating 4 mg PO Q6H Qty: 30 0RF Centrum Complete 1 EACH tablet 1 tab-cap PO DAILY valacyclovir 500 mg tablet 2,000 mg PO ONCE PRN (Reason: cold sores) Qty: 60 1RF Rx Instructions: 4 tabs 2 times daily x 1 day for cold sores omeprazole 20 mg capsule,delayed release(DR/EC) 20 mg PO .qd prn Qty: 30 2RF Discharge Instructions Instructions: Community-Acquired Pneumonia, Adult (DC) Additional Instructions: You are seen in the emergency department for your cough. As we discussed you will receive a call back if your viral swab returns positive. You have a left lower lobe pneumonia on your chest x-ray for which you are receiving antibiotics which you should take as directed. You are receiving a note from work which you should use as needed for rest. As we discussed please return if you develop worsening shortness of breath fevers cannot eat or drink or have any other concerns. Please follow-up with your primary care provider next week as needed. For your pain please take medications as follows: 1. Take acetaminophen (Tylenol), 1,000 mg (two 500 mg tabs) every 6 hours [2. Take ibuprofen (Advil), 400 mg every 6 hours.] Stand Alone Forms: Work Release HPI General Date/Time Provider Initiated Documentation: 10/10/24 07:06. HPI Narrative: MDM This is an overall very well-appearing normothermic and not tachycardic 44-year-old female with history and physical most consistent with bronchitis. Given diagnosis of pneumonia and her son and subjective fevers last week we will obtain a chest x-ray to assess for pneumonia though the patient has no abnormal lung sounds. No history of reactive airway disease nor tobacco use nor wheezes so my suspicion is low for reactive airway disease. No pain out of proportion to suggest necrotizing soft tissue infection. Good range of motion in neck so I am not suspicious for retropharyngeal abscess. No nuchal rigidity to suggest meningitis. 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 Patient is nontoxic-appearing so doubt bacterial tracheitis. Handling secretions so doubt epiglottitis. No significant chest pain to suggest ACS so I did not obtain an x-ray. Will swab for influenza RSV and COVID and reassess following chest x-ray and treatment with Tessalon Perles as patient has taken acetaminophen and ibuprofen earlier this morning. 9:32 AM Chest x-ray showing left lower lobe infiltrate. Patient not hypoxic on room air appropriate for empiric trial of discharge with expectant outpatient management. First dose of amoxicillin given in the emergency department along with antitussive prescription. Patient I discussed return indications including worsening shortness of breath inability to tolerate p.o. I provided her with a work note. Advised PCP follow-up as needed next week. Her influenza, COVID, and RSV swabs were all negative. HPI This is a previously healthy 44-year-old female arrived emergency department via private vehicle in the setting of cough. Patient reports that last week she was traveling to [place]. She said that her son had been sick with walking pneumonia. She said that 4 days ago she felt decreased energy and had some nausea. She was generally fatigued for several days. She had worsening cough. She was initially nauseous but that has improved. She says that she has some discomfort in her throat secondary to coughing. She denies history of diabetes recurrent nausea vomiting difficulty breathing history of tobacco use alcohol use and history of reactive airway disease. No recent falls. Exam General: Well-appearing in no acute distress speaking in complete sentences. Head: Normocephalic, atraumatic. Eye: Extraocular eye movements intact. No conjunctival injection. No scleral icterus. Ear, nose, mouth, throat: Grossly normal inspection. Normal voice, handling secretions normally. Uvula midline. No significant posterior oropharynx erythema. Neck: Trachea midline. Good range of motion in neck Cardiovascular: Well-perfused distal extremities. Regular rate and rhythm. Respiratory: Nonlabored respiration. Clear lungs bilaterally Gastrointestinal: Nondistended abdomen. Musculoskeletal: No edema. Moving all 4 extremities spontaneously. Skin: Normal for age and race, grossly normal temperature and turgor. No acute rash. Neurologic: Alert and appropriate, no apparent acute deficits. Psychiatric: Mood and manner are appropriate. Grooming and personal hygiene are appropriate. Related Data Home Medications ?Medication ?Instructions ?Recorded ?Confirmed multivitamin-ferrous 1 tab-cap PO DAILY 05/21/18 10/10/24 fumarate-folic acid 18 mg-400 mcg tablet (Centrum Complete) ondansetron 4 mg disintegrating 4 mg PO Q6H #30 tabs 12/16/22 10/10/24 tablet valacyclovir 500 mg tablet 2,000 mg (4 x 500 mg) PO ONCE PRN 11/27/23 10/10/24 cold sores #60 tabs omeprazole 20 mg capsule,delayed 20 mg PO .qd prn #30 caps 08/25/24 10/10/24 release amoxicillin 500 mg capsule 1,000 mg (2 x 500 mg) PO TID 7 10/10/24 days #42 caps promethazine-DM 6.25 mg-15 mg/5 mL 5 ml PO Q6H PRN #118 mL 10/10/24 oral syrup Previous Rx's ?Medication ?Instructions ?Recorded ondansetron 4 mg disintegrating 4 mg PO Q6H #30 tabs 12/16/22 tablet valacyclovir 500 mg tablet 2,000 mg (4 x 500 mg) PO ONCE PRN 11/27/23 cold sores #60 tabs omeprazole 20 mg capsule,delayed 20 mg PO .qd prn #30 caps 08/25/24 release amoxicillin 500 mg capsule 1,000 mg (2 x 500 mg) PO TID 7 10/10/24 days #42 caps promethazine-DM 6.25 mg-15 mg/5 mL 5 ml PO Q6H PRN #118 mL 10/10/24 oral syrup Allergies Allergy/AdvReac Type Severity Reaction Status Date / Time No Known Allergies Allergy Verified 10/10/24 07:04 General Stated Complaint: RespSymp NASIM: 4 Course Vital Signs Vital signs: Vital Signs Temperature 37.2 C 10/10/24 06:59 Pulse 99 H 10/10/24 06:59 Respiratory Rate 17 10/10/24 06:59 Blood Pressure 127/70 10/10/24 06:59 Pulse Oximetry 99 10/10/24 06:59 Temperature 37.2 C 10/10/24 07:03 Temperature Source Temporal Artery Scan 10/10/24 07:03 Pulse 99 H 10/10/24 07:03 Respiratory Rate 17 10/10/24 07:03 Respiratory Effort Normal 10/10/24 07:03 Blood Pressure 127/70 10/10/24 07:03 Blood Pressure Position Sitting 10/10/24 07:03 Pulse Oximetry 99 10/10/24 07:03 Oxygen Delivery Method Room Air 10/10/24 07:03 Oxygen Flow Rate 0 10/10/24 07:03 Pain Level 0 10/10/24 07:03 Medical Decision Making Quality:SDOH Health Related Social Needs: No Data to Display PFSH All Active Problems (Updated 10/10/24 @ 08:08 by Ephraim Chilel MD) Left lower lobe pneumonia (Acute) Neck discomfort (Acute) Right shoulder injury (Acute) Medical History Encounter for screening laboratory testing for COVID-19 virus Encounter for screening for other viral diseases Abnormal Pap smear of cervix prior to of first child. Surgical History section (03/17/13) LTCS 2 layer closure. IOL at 42w with Misoprostil arrest of dilation at 7cm for 3hrs. F. 9lbs 1oz. Family History Mother Essential hypertension Asthma Father , 83 Diabetes Essential hypertension Heart disease CHF (congestive heart failure) Depression Hypertension Dementia Grandfather Personal history of malignant neoplasm LUNG Depression Grandfather Colon cancer Grandmother Diabetes Essential hypertension Heart disease Maternal Aunt CHF (congestive heart failure) Breast cancer paternal aunt, maternal aunt Social History Smoking/Tobacco Use Status: Former Tobacco Use Tobacco: How many years used: 1 Second Hand Exposure: No Smoking risk assessment performed?: Yes Alcohol Intake: current Alcohol Intake frequency: holidays/special occasions only Alcohol type: wine Drug use: Never Substance use type: does not use Caregiver/Support person: No Household members: family Housing: house Number of Children: 3 Communication Needs: None Do you need help understanding health information?: Rarely current occupation: RN Pets and animals: Yes Pets and animals: dog(s) Sexually active: Yes Do you think of yourself as: straight/heterosexual Current gender identity: female What is your relationship status?: How often do you talk on the phone with friends or family?: three or more times per week How often do you get together with friends or relatives?: three or more times per week How often do you attend nondenominational or anabaptism services?: decline to answer Do you belong to any clubs or organized social groups?: decline to answer Panel score (0-1 are the most socially isolated patients): 2 What type of physical activity do you participate in: walking Duration: 30-45 minutes/day Frequency: 3-4 times per week Mandi/Shinto: No preference Special mandi needs: No Seatbelt use: always Helmet use: Yes Helmet use: always Drive 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 Do you feel safe at home: Yes Do you feel safe in your relationship?: Yes Victim of physical abuse: No Victim of emotional abuse: No Victim of sexual abuse: No Would you like helpful sources: No Female Reproductive History Menstrual control method: condoms History History 3 Para 3 Hx # Term Pregnancies Multiple births Hx # Pregnancies Ectopic pregnancies AB induced Hx Number of Living Children AB spontaneous PAWSS Have you Been Recently Intoxicated or Drunk Within the Last 30 days?: No Have you Ever Experienced Previous Episodes of Alcohol Withdrawal?: No Have you ever Experienced Withdrawal Seizures?: No Have you ever Experienced Delirium Tremens(DT)s?: No Have you ever undergone Alcohol Rehabilitation Treatment (i.e, inpt ot outpatient treatment programs)?: No Have you ever Experienced Blackouts?: No Have you ever Combined Alcohol with other Downers within the last 90 days?: No Have you ever Combined Alcohol with any other Substance of Abuse during the last 90 days?: No Result: 0
[2024-10-10] MEDS: Benzonatate 100 MG CAP PO (07:38)
--- NOTE | 2024-10-10 08:05 | DI.VRAD_ITS ---
Addendum created by Bridgette Fournier MD on 10/10/2024 8:31:28 AM EST: ADDENDUM: THIS REPORT CONTAINS FINDINGS THAT MAY BE CRITICAL TO PATIENT CARE. The findings were verbally communicated via telephone conference at 8:31 AM EST on 10/10/2024 with TOM Cano, as the ordering physician was unavailable for immediate conference. The findings were acknowledged and understood. Initial report created on 10/10/2024 8:05:17 AM EST: PROCEDURE INFORMATION: Exam: XR Chest Exam date and time: 10/10/2024 7:34 AM Age: 44 years old Clinical indication: Cough and other: Cough TECHNIQUE: Imaging protocol: Radiologic exam of the chest. Views: 2 views. COMPARISON: CR XR CHEST 2V PA LATERAL 09/22/2020 8:51 PM FINDINGS: Lungs: Interval development of focal airspace consolidation in the lateral aspect of the left lower lobe, which partially obscures the left hemidiaphragm. Lungs otherwise clear. Pleural spaces: Unremarkable. No pleural effusion. No pneumothorax. Heart/Mediastinum: Unremarkable. No cardiomegaly. Bones/joints: Unremarkable. IMPRESSION: Left lower lobe pneumonia. Dictated and Authenticated by: Bridgette Fournier MD. Ordering:DANUTA Ye MD
[2024-10-10] MEDS: Amoxicillin 500 MG CAP 1000 MG PO (08:14)
[2024-10-10 08:15] VITALS: BP 109/73; PULSE 83; RESP 18; TEMP 37.2; O2SAT 98
[2024-10-10 08:19] LABS: COVID-19 PCR Negative (Negative); Influenza A PCR Negative (Negative); Influenza B PCR Negative (Negative); RSV PCR Negative (Negative)
[2024-10-10 08:20] LABS: Source Nasopharynx
== END 2024-10-10 08:14 | disposition home or self-care (01) ==
PROVIDERS: Emergency Provider Emergency Medicine; PCP Nurse Practitioner Family
DX: R50.9 Fever, unspecified; J18.9 Pneumonia, unspecified organism; R05.1 Acute cough
CPT/HCPCS: 81025; 87637; 99283; 71046; 99284

== ENCOUNTER 2024-10-12 16:40 | Outpatient (REF) | payer OTHER, SELFPAY ==
[2024-10-12 21:16] LABS: Bilirubin Negative (Negative); Blood Trace-lysed (Negative); Clarity Clear (Clear); Glucose Negative (Negative); Ketones Negative (Negative); Leukocyte Esterase Negative (Negative); Nitrite Negative (Negative); Specific Gravity 1.015 (1.005-1.025)
[2024-10-12 21:24] LABS: Bacteria Rare HPF (Negative); Epithelial Cells Negative HPF (Negative); RBC 0-2 HPF (0-2); WBC Negative HPF (0-5)
[2024-10-12 21:25] LABS: C & S Indicated? No
[2024-10-15 00:20] LABS: Streptococcus Pneumoniae Ag, U Negative (Negative)
== END 2024-10-12 16:41 | disposition home or self-care (01) ==
LOC: LBN 16:40
PROVIDERS: PCP Nurse Practitioner Family; Visit Provider Family Medicine
DX: R32 Unspecified urinary incontinence (principal); J18.9 Pneumonia, unspecified organism
CPT/HCPCS: 81003; 81015; 87899

== ENCOUNTER 2024-11-30 01:15 | Outpatient (CLI) | payer OTHER, SELFPAY ==
--- NOTE | 2024-11-30 12:32 | DI.MAMMO_ITS ---
Exam(s) MAMMO SCREENING EXAM: MAMMO SCREENING CLINICAL HISTORY: screening,z12.39. TECHNIQUE: Bilateral full field digital CC and MLO mammographic images were obtained with 3D tomosyn thesis and utilizing computer aided detection (CAD). COMPARISON: Prior mammograms were reviewed. Prior ultrasound examination July 2022 also reviewed FINDINGS: There has been no significant change in the appearance and distribution of the fibroglandular tissue. There are no new spiculated masses nor malignant appearing microcalcification groups. There is no significant architectural distortion nor skin thickening-retraction. IMPRESSION: No radiographic evidence of malignancy. BI-RADS Category 1 - Negative Breast Density - Category B - Scattered areas of fibroglandular density Breast density Category C or D implies that the patient has dense breast tissue. Dense breast tissue can make it harder to find cancer on a mammogram. Dense breast tissue is also associated with an incr eased risk of breast cancer. This information about the result of the mammogram report was provided to the patient to raise their awareness. Use this report when you speak with the patient about their risks for breast cancer, which includes their family history. At that time, you may recommend additional screening tests (Ultrasoun d or MRI) as these tests may add significant information. A negative radiographic report should not delay biopsy if a dominant or clinically suspicious mass is present. Up to ten percent of cancers are not identified on mammography. A negative report may reinforce clinical impression. Adenosis and dense breasts may obscure an underlying neoplasm. False positive reports average 6 to 10%. Patient will receive a letter notifying them of these results.
== END 2024-11-30 01:35 ==
LOC: DI 01:16
PROVIDERS: PCP Nurse Practitioner Family; Visit Provider Nurse Practitioner Women's Health
DX: Z12.31 Encounter for screening mammogram for malignant neoplasm of breast (principal); R92.323 Mammographic fibroglandular density, bilateral breasts
CPT/HCPCS: 77063; 77067